=== PATIENT | female | born 1955 | race Caucasian/White ===

== ENCOUNTER → 2017-07-13 | Outpatient (CLI) | payer OTHER ==
--- NOTE | 2017-07-14 10:12 | MAM ---
EXAM DESCRIPTION: 3D Screening BILATERAL CLINICAL HISTORY: 61 yearsFemaleSCREENING . No complaints. No family history of breast cancer. Postmenopausal. No HRT. COMPARISON: Baseline study at this facility. No prior reports available. TECHNIQUE: Bilateral CC and MLO projection full-field images, 3-D tomosynthesis digital mammographic technique. Also bilateral synthesized CC/ MLO full-field images. CAD not utilized. FINDINGS: The breast parenchymal density pattern is: Almost entirely fatty. No skin thickening or nipple retraction No focal, stellate mass or density, focal asymmetry , and no suspicious microcalcifications bilaterally. IMPRESSION: BI-RADS CATEGORY: 1 - NEGATIVE FOLLOW UP: Routine digital bilateral screening, one year interval from June 2017. Written communication explaining the findings and follow-up, will be mailed to the patient and referring health care provider. According to the [employer], yearly mammograms are recommended starting at age 40 and continuing as long as a woman is in good health. Any breast change noted on a breast self-exam should be reported promptly to the patient's healthcare provider. Breast MRI is recommended for women with an approximately 20-25% or greater lifetime risk of breast cancer, including women with a strong family history of breast or ovarian cancer and women who have been treated for Hodgkin's disease. A negative mammographic report should not delay tissue diagnosis in patients with significant clinical history or physical findings. Extremely dense breast tissue limits the sensitivity of digital mammography. Electronically signed by: Augustine Rgoers MD 07/14/2017 10:10 AM CDT
== END ==
LOC: MAMMO 13:21
PROVIDERS: ATTEND Family Medicine
DX: Z12.31 Encounter for screening mammogram for malignant neoplasm of breast (principal)
CPT/HCPCS: 77063; G0202

== ENCOUNTER → 2018-09-06 | Outpatient (CLI) | payer OTHER ==
--- NOTE | 2018-09-07 12:45 | MAM ---
EXAM DESCRIPTION: 3D Screening BILATERAL : Digital Mammography. CLINICAL HISTORY: 62 years Female ANNUAL SCREENING . No complaints. No personal or family history of breast cancer. Childbirth. Postmenopausal 10 years. No HRT. Lifetime risk of developing breast cancer (Tyrer-Cuzick model)(%): 8.9. COMPARISON: prior bilateral screening digital breast tomosynthesis 07/13/2017. TECHNIQUE: Bilateral CC and MLO projection full-field images, digital tomosynthesis mammographic technique. Bilateral digital 2-D full-field MLO images. CAD not available for tomosynthesis or 2-D images. FINDINGS: The breast parenchymal density pattern is: Almost entirely fatty. No skin thickening or nipple retraction. No new focal, stellate mass or density, focal asymmetry , and no suspicious microcalcifications bilaterally. Stable mammograms compared to prior study. IMPRESSION: BI-RADS CATEGORY: 1 - NEGATIVE FOLLOW UP: Routine digital bilateral screening, one year interval from August 2018. Written communication explaining the findings and follow-up, will be mailed to the patient and referring health care provider. According to the [employer], yearly mammograms are recommended starting at age 40 and continuing as long as a woman is in good health. Any breast change noted on a breast self-exam should be reported promptly to the patient's healthcare provider. Breast MRI is recommended for women with an approximately 20-25% or greater lifetime risk of breast cancer, including women with a strong family history of breast or ovarian cancer and women who have been treated for Hodgkin's disease. A negative mammographic report should not delay tissue diagnosis in patients with significant clinical history or physical findings. Extremely dense breast tissue limits the sensitivity of digital mammography. Electronically signed by: Augustine Rogers MD 09/07/2018 12:44 PM [facility]
== END ==
LOC: MAMMO 12:01
PROVIDERS: ATTEND Family Medicine
DX: Z12.31 Encounter for screening mammogram for malignant neoplasm of breast (principal)